=== PATIENT | female | born 1965 | race Caucasian/White ===

== ENCOUNTER 2019-06-22 08:23 | Emergency (ER) | payer SELFPAY ==
[~2019-06-22] VITALS: Ht 172 cm; Wt 140.8 kg
[2019-06-22] MEDS ORDERED: CIDE500T PO (08:46)
[2019-06-22] MEDS ORDERED: KETOROLAC 30 MG/ML VIAL IVP ONE (09:00)
[2019-06-22] MEDS ORDERED: NS IV 1000 ML 1,000 ML IV SCH (09:00)
[2019-06-22 09:11] LABS: BACTERIA,URINE NEGATIVE /HPF; BILIRUBIN,URINE NEGATIVE (NEGATIVE); CLARITY,URINE CLEAR; COLOR,URINE PALE YELLOW; GLUCOSE, URINE (UA) 3+ (NEGATIVE); KETONES,URINE NEGATIVE (NEGATIVE); LEUKOCYTE ESTERASE ,URINE NEGATIVE (NEGATIVE); NITRITE,URINE NEGATIVE (NEGATIVE); PROTEIN,URINE NEGATIVE (NEGATIVE); SQUAMOUS EPITHELIAL CELL,UR 0-2 /HPF; WBC,URINE 0-2 /HPF
--- NOTE | 2019-06-22 09:45 | Diagnostic Imaging Report ---
PROCEDURE: CT abdomen and pelvis without contrast. TECHNIQUE: Multiple contiguous axial images were obtained through the abdomen and pelvis without the use of intravenous contrast. Auto Exposure Controls were utilized during the CT exam to meet ALARA standards for radiation dose reduction. INDICATION: Left flank pain The lung bases are clear. Liver appears normal. The gallbladder surgically absent. Common duct is not dilated. Pancreas appears normal. Spleen is not enlarged. Adrenals appear normal. Kidneys appear normal. Ureters are not dilated. The appendix is normal. Small bowel appears normal. There are few diverticula in the colon but no evidence of diverticulitis. Uterus is surgically absent. The ovaries appear to be present. There is a 7 mm calcification of the left ovary that could be part of a small teratoma. IMPRESSION: Left ovarian calcification without a discrete mass. This could be related to small teratoma. Dictated by: Dictated on workstation # [id number]
--- NOTE | 2019-06-22 10:01 | ED Back Pain ---
General Chief Complaint: Back Problems Stated Complaint: LWR BACK PAIN Nursing Triage Note: Pain started four days ago in left flank area. Now pain is wrapping around to fron of left abdomen. Has hx of kidney stones and states this feels like her kidney stone pain. Currently rating her pain at 10/10. Took 500 mg tylenol 6 hours ago. Denies urinary symptoms Nursing Sepsis Screen: No Definite Risk Source of Information: Patient Exam Limitations: No Limitations History of Present Illness Date Seen by Provider: Jun 22, 2019 Time Seen by Provider: 08:40 Initial Comments The patient is a pleasant obese 54-year-old female who presents for evaluation of 3-4 days of left-sided flank pain which has progressively radiated to the left lower quadrant. She states she has had kidney stones in the past that this feels similar. She rates her pain as a 10 out of 10 upon arrival. She took some Tylenol home with little relief. She denies any urinary symptoms. She denies chest pain or shortness of breath, fevers or chills, nausea or vomiting, diarrhea, rectal bleeding, pelvic pain/bleeding/discharge, dizziness or syncope. She is alert and oriented 4, calm, and appears to be uncomfortable but in no distress at this time. Timing/Duration: 3-4 Days Severity: Severe Pain/Injury Location: Back (left flank) Radiation: Other (LLQ abd) Allergies and Home Medications Allergies Coded Allergies: Penicillins (Verified Allergy, Unknown, rash , 06/22/19) Sulfa (Sulfonamide Antibiotics) (Verified Allergy, Unknown, ear swelling , 06/22/19) Home Medications Cider Vinegar 500 Mg Tablet, 500 MG PO DAILY, (Reported) Patient Home Medication List Home Medication List Reviewed: Yes Review of Systems Constitutional: no symptoms reported EENTM: no symptoms reported Respiratory: no symptoms reported Cardiovascular: no symptoms reported Gastrointestinal: LLQ (pain), other (left flank pain) Genitourinary: no symptoms reported Musculoskeletal: no symptoms reported Skin: no symptoms reported Psychiatric/Neurological: No Symptoms Reported All Other Systems Reviewed Negative Unless Noted: Yes Past Ofaxkwh-Oavpth-Rezqeg Hx Past Med/Social Hx: Reviewed Nursing Past Med/Soc Hx Patient Social History Alcohol Use: Denies Use Recreational Drug Use: No Smoking Status: Former Smoker Type Used: Cigarettes Former Smoker, Quit: Apr 15, 1994 2nd Hand Smoke Exposure: No Recent Foreign Travel: No Contact w/Someone Who Travel: No Recent Infectious Disease Expo: No Recent Hopitalizations: No Physical Abuse: No Sexual Abuse: No Mistreated: No Fear: No Seasonal Allergies Seasonal Allergies: No Past Medical History Surgeries: Yes Section, Gallbladder, Hysterectomy Respiratory: No Cardiac: No Neurological: No Genitourinary: Yes Kidney Stones Gastrointestinal: No Musculoskeletal: No Endocrine: No HEENT: No Cancer: No Psychosocial: No Integumentary: No Blood Disorders: No Adverse Reaction/Blood Tranf: No Physical Exam Vital Signs Vital Signs - First Documented 06/22/19 08:37 Temp 36.7 Pulse 101 Resp 16 B/P (MAP) 160/104 (122) Pulse Ox 98 Capillary Refill : Less Than 3 Seconds Height, Weight, BMI Height: '" Weight: lbs. oz. 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 Norm as Tested Skin: Normal Color, Warm/Dry Progress/Results/Core Measures Results/Orders Lab Results Laboratory Tests Test 06/22/19 08:31 06/22/19 08:55 Range/Units Urine Color PALE YELLOW Urine Clarity CLEAR Urine pH 7.0 5-9 Urine Specific [place] <=1.005 1.016-1.022 Urine Protein NEGATIVE NEGATIVE Urine Glucose (UA) 3+ H NEGATIVE Urine Ketones NEGATIVE NEGATIVE Urine Nitrite NEGATIVE NEGATIVE Urine Bilirubin NEGATIVE NEGATIVE Urine Urobilinogen 0.2 < = 1.0 MG/DL Urine Leukocyte Esterase NEGATIVE NEGATIVE Urine RBC (Auto) NEGATIVE NEGATIVE Urine RBC NONE /HPF Urine WBC 0-2 /HPF Urine Squamous Epithelial Cells 0-2 /HPF Urine Crystals NONE /LPF Urine Bacteria NEGATIVE /HPF Urine Casts NONE /LPF Urine Mucus SMALL H /LPF Urine Culture Indicated NO White Blood Count 6.9 4.3-11.0 10^3/uL Red Blood Count 4.86 4.35-5.85 10^6/uL Hemoglobin 14.5 11.5-16.0 G/DL Hematocrit 43 35-52 % Mean Corpuscular Volume 89 80-99 FL Mean Corpuscular Hemoglobin 30 25-34 PG Mean Corpuscular Hemoglobin Concent 34 32-36 G/DL Red Cell Distribution Width 12.5 10.0-14.5 % Platelet Count 301 130-400 10^3/uL Mean Platelet Volume 11.2 H 7.4-10.4 FL Neutrophils (%) (Auto) 59 42-75 % Lymphocytes (%) (Auto) 34 12-44 % Monocytes (%) (Auto) 5 0-12 % Eosinophils (%) (Auto) 1 0-10 % Basophils (%) (Auto) 1 0-10 % Neutrophils # (Auto) 4.1 1.8-7.8 X 10^3 Lymphocytes # (Auto) 2.4 1.0-4.0 X 10^3 Monocytes # (Auto) 0.3 0.0-1.0 X 10^3 Eosinophils # (Auto) 0.1 0.0-0.3 10^3/uL Basophils # (Auto) 0.0 0.0-0.1 10^3/uL Sodium Level 134 L 135-145 MMOL/L Potassium Level 4.3 3.6-5.0 MMOL/L Chloride Level 96 L 98-107 MMOL/L Carbon Dioxide Level 27 21-32 MMOL/L Anion Gap 11 5-14 MMOL/L Blood Urea Nitrogen 12 7-18 MG/DL Creatinine 0.71 0.60-1.30 MG/DL Estimat Glomerular Filtration Rate > 60 BUN/Creatinine Ratio 17 Glucose Level 267 H 70-105 MG/DL Calcium Level 9.7 8.5-10.1 MG/DL Corrected Calcium 9.6 8.5-10.1 MG/DL Total Bilirubin 0.3 0.1-1.0 MG/DL Aspartate Amino Transf (AST/SGOT) 13 5-34 U/L Alanine Aminotransferase (ALT/SGPT) 12 0-55 U/L Alkaline Phosphatase 92 40-136 U/L Total Protein 6.9 6.4-8.2 GM/DL Albumin 4.1 3.2-4.5 GM/DL Lipase 42 8-78 U/L My Orders Orders - WANDER MONTILLA DO Cbc With Automated Diff (06/22/19 08:46) Comprehensive Metabolic Panel (06/22/19 08:46) Lipase (06/22/19 08:46) Ed Iv/Invasive Line Start (06/22/19 08:46) Ketorolac Injection (Toradol Injection) (06/22/19 09:00) Ct Abdomen/Pelvis Wo (06/22/19 08:46) Ua Culture If Indicated (06/22/19 08:57) Ns Iv 1000 Ml (Sodium Chloride 0.9%) (06/22/19 09:00) Medications Given in ED Current Medications Medications Dose Ordered Sig/Sheldon Route Start Time Stop Time Status Last Admin Dose Admin Ketorolac Tromethamine 30 mg ONCE ONCE IVP 06/22/19 09:00 06/22/19 09:01 DC 06/22/19 08:54 30 MG Vital Signs/I&O 06/22/19 08:37 Temp 36.7 Pulse 101 Resp 16 B/P (MAP) 160/104 (122) Pulse Ox 98 Blood Pressure Mean: 122 Progress Progress Note : Progress Note @1030 - patient updated on lab and imaging results. The patient that she has a small cystlike structure versus urge, on the left ovary. Advise follow-up with PCP regarding this. Given the patient's pain complaint and resolution of pain, as she is now feeling much better, I believe that she likely passed a kidney stone. Advised patient to follow up with her PCP in the next 1-2 days and to return to the emergency Department immediately for new or worsening symptoms. The patient expresses verbal understanding and agreement with the plan and is stable for discharge home at this time. Diagnostic Imaging Diagonstic Imaging: CT Comments [facility]. [place], [place] NAME: RADHA WEAVER [facility] REC#: [id number] PT STATUS: REG ER : 1965 PHYSICIAN: WANDER MNOTILLA DO ADMIT DATE: 06/22/19/ER FS Signed Date of Exam:06/22/19 CT ABDOMEN/PELVIS WO PROCEDURE: CT abdomen and pelvis without contrast. TECHNIQUE: Multiple contiguous axial images were obtained through the abdomen and pelvis without the use of intravenous contrast. Auto Exposure Controls were utilized during the CT exam to meet ALARA standards for radiation dose reduction. INDICATION: Left flank pain The lung bases are clear. Liver appears normal. The gallbladder surgically absent. Common duct is not dilated. Pancreas appears normal. Spleen is not enlarged. Adrenals appear normal. Kidneys appear normal. Ureters are not dilated. The appendix is normal. Small bowel appears normal. There are few diverticula in the colon but no evidence of diverticulitis. Uterus is surgically absent. The ovaries appear to be present. There is a 7 mm calcification of the left ovary that could be part of a small teratoma. IMPRESSION: Left ovarian calcification without a discrete mass. This could be related to small teratoma. Dictated by: Dictated on workstation # [id number] Dict: 06/22/19938 Trans: 06/22/19942 [id number] Interpreted by: THOMAS SAGASTUME MD Electronically signed by: THOMAS SAGASTUME MD 06/22/19942 Departure Impression Primary Impression: Left flank pain Additional Impression: Mass of left ovary Disposition: HOME, SELF-CARE Condition: Stable Departure-Patient Inst. Decision time for Depature: 10:35 Referrals: ALYSIA COOK MD (PCP/Family) Primary Care Physician Patient Instructions: Flank Pain Add. Discharge Instructions: Follow-up with your doctor in the next 1-[address] scan of the abdomen and pelvis today there is a small mass seen on the left ovary which is most likely a teratoma which is a benign growth or could also be an ovarian cyst. This can be followed up with your primary care doctor. Take the prescribed medication as directed, as needed. Scripts Tramadol HCl (Ultram) 50 Mg Tablet 50 MG PO Q6H PRN for PAIN-MODERATE (5-7) for 5 Days, #15 TAB Prov: WANDER MONTILLA DO 06/22/19 WANDER MONTILLA DO Jun 22, 2019 10:01
[2019-06-22 10:06] LABS: HEMATOCRIT 43 % (35-52); HEMOGLOBIN 14.5 G/DL (11.5-16.0); MEAN CORPUSCULAR HEMOGLOBIN 30 PG (25-34); MEAN CORPUSCULAR VOLUME 89 FL (80-99); WHITE BLOOD COUNT 6.9 10^3/uL (4.3-11.0)
[2019-06-22 10:07] LABS: BASOPHILS % (AUTO) 1 % (0-10); EOSINOPHILS # (AUTO) 0.1 10^3/uL (0.0-0.3); EOSINOPHILS % (AUTO) 1 % (0-10); LYMPHOCYTES # (AUTO) 2.4 X 10^3 (1.0-4.0); LYMPHOCYTES % (AUTO) 34 % (12-44); MEAN CORPUSCULAR HGB CONC 34 G/DL (32-36); MEAN PLATELET VOLUME 11.2 FL (7.4-10.4); MONOCYTES # (AUTO) 0.3 X 10^3 (0.0-1.0); MONOCYTES % (AUTO) 5 % (0-12); NEUTROPHILS # (AUTO) 4.1 X 10^3 (1.8-7.8); NEUTROPHILS % (AUTO) 59 % (42-75); PLATELET COUNT 301 10^3/uL (130-400); RED CELL DISTRIBUTION WIDTH 12.5 % (10.0-14.5)
[2019-06-22 10:15] LABS: ALANINE AMINOTRANSFERASE 12 U/L (0-55); ALBUMIN 4.1 GM/DL (3.2-4.5); ALKALINE PHOSPHATASE 92 U/L (40-136); BILIRUBIN,TOTAL 0.3 MG/DL (0.1-1.0); BUN/CREATININE RATIO 17; CALCIUM 9.7 MG/DL (8.5-10.1); CARBON DIOXIDE 27 MMOL/L (21-32); CHLORIDE 96 MMOL/L (98-107); CREATININE SERUM 0.71 MG/DL (0.60-1.30); GFR ESTIMATED > 60; GLUCOSE 267 MG/DL (70-105); LIPASE 42 U/L (8-78); POTASSIUM 4.3 MMOL/L (3.6-5.0); SODIUM 134 MMOL/L (135-145); TOTAL PROTEIN 6.9 GM/DL (6.4-8.2)
[2019-06-22] MEDS ORDERED: TRAM-42 PO (10:41)
[2019-06-22 10:43] VITALS: BP 159/100
--- OUTSIDE RECORDS SUMMARY | 2019-06-24 16:25 | XMS REPORT | Continuity of Care Document ---
Author Organization Unknown Address Unknown Phone Unavailable Allergies Active Description Code Type Severity Reaction Onset Reported/Identified Relationship to Patient Clinical Status Yes Penicillins [id number] Drug Aller gy Unknown rash 06/22/2019 Yes Sulfa (Sulfonamide Antibiotics) [id number] Drug Allergy Unknown ear swelling 06/22/2019 Medications There is no data. Problems There is no data. Procedures There is no data. Results Test Result Range Complete urinalysis with reflex to cultu re - 06/22/19 08:31 Urine color determination PALE YELLOW N RG Urine clarity determination CLEAR NR G Urine pH measurement by test strip 7.0 5-9 Specific gravity of urine by test strip <= 1.016-1.022 Urine protein assay by test strip, semi-quantitative NEGATIVE NEGATIVE Urine glucose detection by automated test strip 3+ NEGATIVE Erythrocytes detection in urine sediment by light micr oscopy NEGATIVE NEGATIVE Urine ketones detection by automated test strip NE GATIVE NEGATIVE Urine nitrite detection by test strip NEGATIVE NEGATIVE Urine total bilirubin detection by test strip NEGA TIVE NEGATIVE Urine urobilinogen measurement by automated test strip (mass/volume) 0.2 mg/dL < = 1.0 Urine leukocyte esterase detection by dipstick NEG ATIVE NEGATIVE Automated urine sediment erythrocyte cou nt by microscopy (number/high power field) NONE NRG Automated urine sediment leukocyte count by microscopy (number/high power field) [HPF] NRG Bacteria detection in urine sediment by light microsco py NEGATIVE NRG Squamous epithelial cells detection in u rine sediment by light microscopy 0-2 NRG Crystals detection in urine sediment by light microsco py NONE NRG Casts detection in urine sediment by light microscopy NONE NRG Mucus detection in urine sediment by light microscopy SMALL NRG Complete urinalysis with reflex to culture NO NRG Comprehensive metabolic panel - 06/22/19 08:55 Serum or plasma sodium measurement (moles/volume) 134 mmol/L 135-145 Serum or plasma potassium measurement (moles/volume) 4.3 mmol/L 3.6-5.0 Serum or plasma chloride measurement (moles/volume) 96 mmol/L 98-107 Carbon dioxide 27 mmol/L 21-32 Serum or plasma anion gap determination (moles/volume) 11 mmol/L 5-14 Serum or plasma urea nitrogen measurement (mass/volume ) 12 mg/dL 7-18 Serum or plasma creatinine measurement (mass/volume) 0.71 mg/dL 0.60-1.30 Serum or plasma urea nitrogen/creatinine mass ratio 17 NRG Serum or plasma creatinine measurement w ith calculation of estimated glomerular filtration rate > NRG Serum or plasma glucose measurement (mass/volume) 267 mg/dL 70-105 Serum or plasma calcium measurement (mass/volume) 9.7 mg/dL 8.5-10.1 Serum or plasma total bilirubin measurement (mass/volu me) 0.3 mg/dL 0.1-1.0 Serum or plasma alkaline phosphatase ariel surement (enzymatic activity/volume) 92 U/L 40-136 Serum or plasma aspartate aminotransfera se measurement (enzymatic activity/volume) 13 U/L 5-34 Serum or plasma alanine aminotransferase measurement (enzymatic activity/volume) 12 U/L 0-55 Serum or plasma protein measurement (mass/volume) 6.9 g/dL 6.4-8.2 Serum or plasma albumin measurement (mass/volume) 4.1 g/dL 3.2-4.5 CALCIUM CORRECTED 9.6 mg/dL 8.5-10.1 Lipase - 06/22/19 08:55 Lipase 42 U/L 8-78 Encounters ACCT No. Visit Date/Time Discharge Status Pt. Type Provider Facility Loc./Unit Complaint [id number] 06/22/2019 08:24:00 020 10:51:00 DIS Emergency ROLDAN VIRAMONTES DO [facility] ER FS LWR BACK PAIN
== END 2019-06-22 10:51 | disposition home or self-care (01) ==
LOC: ER FS 08:24
DX: N83.8 Other noninflammatory disorders of ovary, fallopian tube and broad ligament (principal); R10.9 Unspecified abdominal pain; Z88.0 Allergy status to penicillin; Z88.2 Allergy status to sulfonamides; Z87.891 Personal history of nicotine dependence
CPT/HCPCS: 36415; 74176; 80053; 81000; 83690; 85025

== ENCOUNTER 2020-01-07 05:47 | Outpatient (CLI) | payer OTHER ==
[~2020-01-07] VITALS: Ht 172 cm; Wt 140.0 kg
[~2020-01-07 05:47] MED LIST: CIDE500T PO; TRAM-42 PO
== END 2020-01-07 12:19 ==
LOC: PREOP 05:47
PROVIDERS: ATTEND Surgery
DX: Z01.818 Encounter for other preprocedural examination (principal)

== ENCOUNTER 2020-01-14 08:10 | Day surgery (SDC) | payer OTHER ==
[2020-01-14] VITALS (11 sets, daily range): BP systolic 91–161; BP diastolic 54–97
[~2020-01-14] VITALS: Ht 172 cm; Wt 140.0 kg
[2020-01-14] MEDS ORDERED: CLINDAMYCIN 600 MG/50 ML IVPB 50 ML IV ONE (08:30)
[2020-01-14] MEDS: LACTATED RINGERS 1,000 ML IV PRN ×2 (08:31→11:07)
[2020-01-14] MEDS ORDERED: CATHETER FLUSH 10 ML SYR IV PRN (08:45)
--- NOTE | 2020-01-14 09:42 | Progress Note-Pre Operative ---
Pre-Operative Progress Note H&P Reviewed The H&P was reviewed, patient examined and no changes noted. Date Seen by Provider: Jan 14, 2020 Time Seen by Provider: 09:41 Date H&P Reviewed: Jan 14, 2020 Time H&P Reviewed: 09:41 Pre-Operative Diagnosis: cyst of chest MOISES HOWELL DO Jan 14, 2020 09:42
[2020-01-14] MEDS ORDERED: BUP/EPI 0.25% 1:200,000 (MARCAINE) 30 ML VIAL ONE (09:45)
[2020-01-14] MEDS ORDERED: fentaNYL INJECTION 100 MCG/2 ML AMP ONE ×2 (09:47→11:34)
[2020-01-14] MEDS ORDERED: MIDAZOLAM 2 MG/2 ML (VERSED) VIAL ONE (09:48)
[2020-01-14] MEDS ORDERED: SEVOFLURANE (ULTANE) 15 ML INHAL SOLN ONE ×4 (09:53→11:30)
[2020-01-14] MEDS ORDERED: proPOfol 200 MG/20 ML (DIPRIVAN) VIAL IV ONE ×2 (09:53→11:17)
[2020-01-14] MEDS ORDERED: LIDOCAINE PF 2% 5 ML (XYLOCAINE) VIAL ONE (09:53)
[2020-01-14] MEDS ORDERED: ONDANSETRON 4 MG/2 ML (SDV) Z0FRAN ONE (09:53)
[2020-01-14] MEDS ORDERED: ONDANSETRON 4 MG/2 ML (SDV) Z0FRAN IVP PRN (12:00)
[2020-01-14] MEDS ORDERED: HYDROmorphone 2 MG/ML VIAL (DILAUDID) IV ONE (12:00)
[2020-01-14] MEDS ORDERED: HYDR-4226 PO (12:36)
--- NOTE | 2020-01-14 12:38 | Discharge Inst-Simple/Standard ---
Discharge Inst-Standard Discharge Medications New, Converted or Re-Newed RX: RX on Chart Patient Instructions/Follow Up Plan of Care/Instructions/FU: 2 weeks Esther Activity as Tolerated: No Discharge Diet: Regular Diet Other Inst to Patient Follow up Appt: Make appointment for 2 week. Instructions: No lifting greater than 10 pounds. No strenuous activity. May shower in 24 hours, no tub bath or soaking. Use incentive spirometer at home as directed. No Smoking Skin/Wound Care: Keep area clean and dry. Change dressing daily and as needed Symptoms to Report: Appetite Changes, Extremity Discoloration, Numbness/Tingling, Swelling Increased, Bleeding Excessive, Eyesight Changes, Pain Increased, Urine Color Change, Constipation(Persistent), Fever over 101 degree F, Pain/Pressure in chest, Urinating Difficulty, Cough Up/Vomit Blood, Heart Beat Irreg/Pounding, Pain/Pressure in jaw, Vaginal Bleeding Increase, Cramps in feet or legs, Lightheadedness, Pain/Pressure in shoulder, Diarrhea(Persistent), Memory Changes Suddenly, Questions/Concerns, Weight gain consecutive days, Dizziness/Fainting, Nausea/Vomiting, Shortness of Breath, Weight gain over 2 pounds If questions or concerns contact your physician Or seek help at emergency department. MOISES HOWELL DO Jan 14, 2020 12:38
--- NOTE | 2020-01-14 13:29 | Progress Note-Post Operative ---
Post-Operative Progess Note Surgeon (s)/Online Marketing Strategist (s) Surgeon MOISES HOWELL DO Online Marketing Strategist: na Pre-Operative Diagnosis cyst of chest Post-Operative Diagnosis same Procedure & Operative Findings Date of Procedure 01/14/20 Procedure Performed/Findings excision of chest cyst subcuanteous layer [id number] Anesthesia Type general Estimated Blood Loss Estimated blood loss (mL): minimal Specimens/Packing Specimens Removed cyst MOISES HOWELL DO Jan 14, 2020 13:29
--- NOTE | 2020-01-14 23:51 | OPERATIVE REPORT ---
DATE OF SERVICE: 01/14/2020 PREOPERATIVE DIAGNOSIS: Cyst of chest. POSTOPERATIVE DIAGNOSIS: Cyst of chest. PROCEDURE: Excision of chest cyst subcutaneous layer, 11 x 10 x 6 cm. SURGEON: Moises Santana DO. ANESTHESIA: General. ESTIMATED BLOOD LOSS: Minimal. COMPLICATIONS: None. SPECIMENS: Cyst. INDICATIONS: The patient is a 54-year-old female with a cyst on her chest that has been drained previously, had grown in size over 20+ years. She understands risks and benefits of procedure and wishes to proceed with procedure. Consent was signed in the chart. DESCRIPTION OF PROCEDURE: The patient was taken to the operating suite. She was prepped and draped in sterile fashion. Surgical pause was performed. A 15-blade scalpel was used to make a skin incision and Metzenbaums were used to dissect around the cyst. On the inferior aspect, there was a part attached to the skin, which was encountered. This was significantly adhered to it. The cyst was then broken into and ruptured at this point and partially drained. The cyst lining was then removed in its entirety and cut off from the skin level. Where the skin was attached, the skin was then removed as well, so no cyst lining was present within the wound. Copious amounts of irrigation was used to irrigate the wound and suction. The subcutaneous tissues were then reapproximated using 3-0 Vicryl. The skin was then closed using hector. The patient tolerated procedure well without any complications. She was taken to recovery room in stable condition. Job ID: [id number] DocumentID: [id number] Dictated Date: 01/14/2020 13:28:45 Ocular Care Aide Date: 01/14/2020 23:49:30 Dictated By: MOISES SANTANA DO [facility]
--- NOTE | 2020-01-15 07:34 | Anesthesia-General Post-Op ---
General Patient Condition Mental Status/LOC: Same as Preop Cardiovascular: Satisfactory Nausea/Vomiting: Absent Respiratory: Satisfactory Pain: Controlled Complications: Absent Post Op Complications Complications None Follow Up Care/Instructions Patient Instructions None needed. Anesthesia/Patient Condition Patient Condition Patient is doing well, no complaints, stable vital signs, no apparent adverse anesthesia problems. No complications reported per nursing. D/C home per [facility] Criteria: Yes MANINDER DOUGLAS CRNA Jan 15, 2020 07:34
== END 2020-01-14 13:50 | disposition home or self-care (01) ==
LOC: SDC 08:10
PROVIDERS: ATTEND Surgery
DX: L72.0 Epidermal cyst (principal); K21.9 Gastro-esophageal reflux disease without esophagitis; E66.01 Morbid (severe) obesity due to excess calories; Z79.899 Other long term (current) drug therapy; Z88.0 Allergy status to penicillin; Z88.2 Allergy status to sulfonamides; Z87.891 Personal history of nicotine dependence
CPT/HCPCS: 87081; 88304